=== PATIENT | female | born 1940 | race Caucasian/White ===

== ENCOUNTER → 2016-05-28 | Outpatient (CLI) | payer MEDICARE, OTHER ==
[2016-05-28 09:54] LABS: BILIRUBIN URINE NEGATIVE (NEGATIVE); BLOOD URINE 150 /UL (NEGATIVE); COLOR URINE YELLOW (YELLOW); GLUCOSE URINE NEGATIVE (NEGATIVE); KETONE URINE NEGATIVE (NEGATIVE); LEUKOCYTES URINE 500 /UL (NEGATIVE); NITRITE URINE NEGATIVE (NEGATIVE); PROTEIN URINE 30 mg/dL (NEGATIVE); UROBILINOGEN URINE NORMAL (NORMAL)
[2016-05-28 09:55] LABS: TURBIDITY URINE 2+ (CLEAR)
[2016-05-28 10:03] LABS: AMORPHOUS URINE 2+ (NEGATIVE); BACTERIA URINE MANY (NEGATIVE); MUCUS URINE 2+ (NEGATIVE); WBC URINE PACKED FIELD #/HPF (NEGATIVE)
== END | disposition disaster alternative care site (69) ==
PROVIDERS: Internal Medicine
DX: R41.89 Other symptoms and signs involving cognitive functions and awareness (principal)